=== PATIENT | female | born 1985 | race Native Hawaiian/Other Pacific Islander ===

== ENCOUNTER 2022-03-27 15:23 | Emergency (ER) | payer MEDICAID ==
[~2022-03-27] VITALS: Ht 149.9 cm; Wt 59.0 kg
[2022-03-27 16:20] VITALS: BP 146/74
[2022-03-27] MEDS ORDERED: NAPR-56 PO (16:46)
[2022-03-27] MEDS ORDERED: ORPH100T2 PO (16:46)
== END 2022-03-27 17:09 | disposition home or self-care (01) ==
LOC: ER 15:24
DX: S39.012A Strain of muscle, fascia and tendon of lower back, initial encounter (principal); M62.830 Muscle spasm of back; K21.9 Gastro-esophageal reflux disease without esophagitis; W19.XXXA Unspecified fall, initial encounter; Y93.89 Activity, other specified; Y92.89 Other specified places as the place of occurrence of the external cause; Y99.8 Other external cause status
CPT/HCPCS: 99284

== ENCOUNTER 2023-03-07 05:22 | Observation (INO) | payer BC, MEDICAID ==
[2023-03-04 16:49] LABS: BASOPHILS % (AUTO) 0.4 % (0-1); EOSINOPHILS # (AUTO) 0.2 X10'3 (0-0.9); EOSINOPHILS % (AUTO) 2.4 % (0-6); LYMPHOCYTES # (AUTO) 2.7 X10'3 (1.1-4.8); LYMPHOCYTES % (AUTO) 26.7 % (21-51); MEAN CORPUSCULAR HEMOGLOBIN 29.4 PG (27.0-31.0); MEAN CORPUSCULAR HGB CONC 33.6 g/dL (33.0-36.5); MEAN CORPUSCULAR VOLUME 87.5 FL (78-98); MEAN PLATELET VOLUME 7.5 FL (7.4-10.4); MONOCYTES # (AUTO) 0.8 X10'3 (0-0.9); MONOCYTES % (AUTO) 7.7 % (2-12); NEUTROPHILS # (AUTO) 6.3 X10'3 (1.8-7.7); NEUTROPHILS % (AUTO) 62.8 % (42-75); PRE OP HEMATOCRIT 41.1 % (35.0-45.0); PRE OP HEMOGLOBIN 13.8 g/dL (12.0-16.0); PRE OP PLATELET COUNT 379 X10'3 (140-440); RED BLOOD COUNT 4.69 X10'6 (4.20-5.60); RED CELL DISTRIBUTION WIDTH 12.3 % (11.5-14.5)
[2023-03-04 16:59] LABS: ALBUMIN 3.6 G/DL (3.4-5.0); ALBUMIN/GLOBULIN RATIO 0.8 (1.1-1.5); ALKALINE PHOSPHATASE 81 IU/L (46-116); BLOOD UREA NITROGEN 17 MG/DL (7-18); BUN/CREATININE RATIO 22.4 (10.0-20.0); CALCIUM 8.6 MG/DL (8.5-10.1); CHLORIDE 101 MMOL/L (99-107); CREATININE 0.76 MG/DL (0.40-0.90); PRE OP ALT 33 U/L (30-65); PRE OP ANION GAP 7 (8-16); PRE OP AST 22 U/L (10-37); PRE OP BILIRUB, TOTAL 0.3 MG/DL (0.0-1.0); PRE OP GLUCOSE 105 MG/DL (70-104); PRE OP POTASSIUM 3.4 MMOL/L (3.4-5.1); PRE OP SODIUM 136 MMOL/L (135-145); TOTAL CARBON DIOXIDE 27.9 MMOL/L (24-32); TOTAL PROTEIN 8.2 G/DL (6.4-8.2); eGFR 85 ML/MIN
[2023-03-04 17:35] LABS: BETA HCG,QUANTITATIVE < 1.0 mIU/ml
[~2023-03-07] VITALS: Ht 144.8 cm; Wt 63.9 kg
[2023-03-07] VITALS (24 sets, daily range): BP systolic 104–146; BP diastolic 67–90; PULSE 70–100; RESP 14–21; TEMP 97.4–98.3; O2SAT 93–100
[~2023-03-07 05:22] MED LIST: OMEP20CA16 PO; ringers solution, lacted 1,000 ML IV SCH
[2023-03-07] MEDS ORDERED: clindamycin-Cleocin 900mg/D5W 50 ML IV ONE (05:30)
[2023-03-07] MEDS ORDERED: famotidine 20mg tablet PO ONE (05:30)
[2023-03-07] MEDS ORDERED: LIDOcaine 1% 30ml preserv. free vial ONE (07:08)
[2023-03-07] MEDS ORDERED: BUPIVAcaine/PF 2.5mg/ml (0.25%) 10ml vial ONE (07:08)
[2023-03-07] MEDS ORDERED: fentaNYL /PF 50mcg/ml 5ml ampule ONE (07:26)
[2023-03-07] MEDS ORDERED: midazolam 1 mg/ML 2ml injection ONE (07:26)
[2023-03-07] MEDS ORDERED: sevoflurane 250ml liquid IH ONE (07:28)
[2023-03-07] MEDS ORDERED: rocuronium 10mg/ml inj IV ONE (08:14)
[2023-03-07] MEDS ORDERED: LIDOcaine 2% (20mg/ml) 5ml vial ONE (08:14)
[2023-03-07] MEDS ORDERED: propofol inj 20 ML IV ONE (08:14)
[2023-03-07] MEDS ORDERED: ondansetron/PF 4mg/2ml inj ONE (08:15)
[2023-03-07] MEDS ORDERED: dexamethasone sod phosphate 4mg/ml inj. ONE (08:15)
[2023-03-07] MEDS ORDERED: metoprolol tartrate 1mg/ml inj IV ONE (08:15)
[2023-03-07] MEDS ORDERED: neostigmine methylsulfate 1 MG/ML 10ml vial ONE (09:26)
[2023-03-07] MEDS ORDERED: glycopyrrolate 0.2mg/ml inj ONE (09:26)
[2023-03-07] MEDS ORDERED: ketorolac trometh. 30mg/ml inj. IV ONE (09:45)
[2023-03-07] MEDS ORDERED: hydrALAZINE 20mg/ml inj. IV PRN (09:45)
[2023-03-07] MEDS ORDERED: meperidine/PF 25mg/ml syringe IV PRN ×3 (09:45)
[2023-03-07] MEDS ORDERED: labetalol 20mg/4ml (5mg/ml) syringe IV PRN (09:45)
[2023-03-07] MEDS ORDERED: morphine 4 MG/ML inj SYRINge IV PRN (09:45)
[2023-03-07] MEDS ORDERED: proCHLORperazine 10 MG/2 ml inj IV PRN (09:45)
[2023-03-07] MEDS ORDERED: morphine 2 MG/ML inj. syringe IV PRN (09:45)
[2023-03-07] MEDS ORDERED: ondansetron/PF 4mg/2ml inj IV PRN (09:45)
[2023-03-07] MEDS ORDERED: acetaminophen 1,000mg/100ml IV 100 ML IV ONE (09:45)
[2023-03-07] MEDS ORDERED: ringers solution, lacted 1,000 ML IV SCH (09:45)
[2023-03-07] MEDS ORDERED: oxyCODONE/APAP 5-325mg tablet PO PRN (10:05)
[2023-03-07] MEDS ORDERED: PER5325T PO (11:55)
[2023-03-07] MEDS ORDERED: naloxone 0.4 mg/ml inj IV PRN (15:10)
[2023-03-07] MEDS: normal saline 1000ml 1,000 ML IV SCH ×2 (15:58→19:08)
[2023-03-07] MEDS: HYDROmorph/NS 0.2 mg/ml PCA 100 ML IV SCH ×5 (16:08→23:00)
[2023-03-07] MEDS: heparin, porcine 5000 units/ml vial SQ SCH (19:32)
[2023-03-07] MEDS: docusate sod 100mg capsule PO SCH (19:33)
[2023-03-07] MEDS: sennosides/docusate sodium tablet PO SCH (19:33)
[2023-03-08] VITALS: BP 125/85; PULSE 96
[2023-03-08] MEDS: HYDROmorph/NS 0.2 mg/ml PCA 100 ML IV SCH ×5 (01:00→09:00)
[2023-03-08 02:00] VITALS: BP 138/69; PULSE 81; RESP 20; TEMP 98; O2SAT 98
[2023-03-08 04:00] VITALS: BP 122/82; PULSE 97
[2023-03-08 06:00] VITALS: BP 141/85; PULSE 81; RESP 20; TEMP 97.9; O2SAT 99
[2023-03-08] MEDS: heparin, porcine 5000 units/ml vial SQ SCH (08:00)
[2023-03-08] MEDS: sennosides/docusate sodium tablet PO SCH (08:29)
[2023-03-08] MEDS: docusate sod 100mg capsule PO SCH (08:34)
[2023-03-08] MEDS ORDERED: PCA WASTE DOCUMENTATION 1 MG ML MC SCH (09:30)
[2023-03-08 10:00] VITALS: BP 129/94; PULSE 80; RESP 15; TEMP 97.9; O2SAT 98
[2023-03-08 10:44] VITALS: RESP 17
== END 2023-03-08 10:50 | disposition home or self-care (01) ==
LOC: PAS 05:22 → ORTHO 4S 15:09
PROVIDERS: ADMIT Surgery; ATTEND Surgery
DX: K44.9 Diaphragmatic hernia without obstruction or gangrene (principal); K21.9 Gastro-esophageal reflux disease without esophagitis; Z88.0 Allergy status to penicillin; Z79.899 Other long term (current) drug therapy
CPT/HCPCS: 36415; 43282; 71045; 80053; 82948; 84702; 85025; 96365; 96366; 96375; C1781; G0378; J0131; J1100; J1170; J1644; J1885; J2175; J2250; J2270; J2405; J2704; J2710; J3010; J3490; J7030; J7120; S2900; A4615; A4618